=== PATIENT | female | born 1975 | race Caucasian/White ===

== ENCOUNTER 2022-04-22 15:42 | Emergency (ER) | payer SELFPAY ==
[~2022-04-22] VITALS: Ht 167.6 cm; Wt 99.8 kg
[2022-04-22 15:46] VITALS: BP_SYST 163
[2022-04-22] MEDS ORDERED: DIAZEPAM 5 MG TABLET (VALIUM) PO ONE (16:00)
[2022-04-22] MEDS ORDERED: KETOROLAC TROMETHAMINE 60 MG/2 ML VIAL IM ONE (16:00)
[2022-04-22] MEDS ORDERED: DICL75TA5 PO (17:25)
== END 2022-04-22 17:59 | disposition home or self-care (01) ==
LOC: SED 15:42
DX: S16.1XXA Strain of muscle, fascia and tendon at neck level, initial encounter (principal); Z79.899 Other long term (current) drug therapy; X58.XXXA Exposure to other specified factors, initial encounter; Y93.89 Activity, other specified; Y92.89 Other specified places as the place of occurrence of the external cause; Y99.8 Other external cause status
CPT/HCPCS: 99284; 72125; 76376; 96372; J1885